=== PATIENT | male | born 2000 | race Caucasian/White ===

== ENCOUNTER 2020-09-18 14:17 | Emergency (ER) | payer OTHER ==
--- NOTE | 2020-09-18 16:00 | RAD ---
Exam:4 views left knee HISTORY: Pain x2 weeks. COMPARISON: None FINDINGS: No joint effusion. No fracture. No malalignment. Joint spaces are preserved. IMPRESSION: No fracture. No joint effusion. No significant loss of joint space height. If there is co ncern for internal derangement, consider MRI.
== END 2020-09-18 16:44 | disposition home or self-care (01) ==
LOC: ERS 14:17
DX: M25.562 Pain in left knee (principal); Z79.899 Other long term (current) drug therapy